=== PATIENT | female | born 1975 | race Caucasian/White ===

== ENCOUNTER 2022-10-06 16:18 | Emergency (ER) | payer MEDICAID, SELFPAY ==
[2022-10-06 16:24] VITALS: BP 125/79; PULSE 83; TEMP 36.6; O2SAT 96; BMI 32.1
[2022-10-06 16:35] VITALS: BP 128/78; PULSE 70; RESP 18; TEMP 36.6
--- NOTE | 2022-10-06 16:45 | CT_ITS ---
STUDY: CT ABDOMEN AND PELVIS WITHOUT CONTRAST REASON FOR EXAM: Female, 47 years old. Pain RADIATION DOSAGE (If Supplied By Facility): CTDIvol = ( 12.84 ) mGy, DLP = ( 737.77 ) mGycm TECHNIQUE: Transaxial images were obtained from the dome of the diaphragm to the symphysis pubis without oral contrast, and without intravenous contrast. Sagittal and coronal images were reconstructed. Individualized dose optimization techniques were used for this CT. COMPARISON: None. FINDINGS: The visualized lung bases are unremarkable. The visualized portions of the heart are within normal limits. Normal liver. There are surgical clips in the gallbladder fossa consistent with a prior cholecystectomy. Normal spleen. Normal pancreas. Normal bilateral adrenal glands. Normal right kidney. Normal left kidney. Normal visualized stomach. Normal small intestine. There are multiple colonic diverticula consistent with diverticulosis. The appendix is visualized and appears normal. Normal abdominal aorta. Normal inferior vena cava. Normal retroperitoneum. Normal urinary bladder. Normal abdominal wall. Mild dextroscoliosis of the lumbar spine with degenerative disc disease. CT/Abdomen/Pelvis without Cont IMPRESSION: No renal or ureteral stone. Electronically Signed: Olu Foote MD at 18:15 EDT ,
--- NOTE | 2022-10-06 16:47 | ED.VIS.GI ---
HPI HPI - GI History of Present Illness Chief Complaint: Complaint Detail of Chief Complaint: Right flank and hip pain. Informant: patient and family Abdominal Pain/Flank Pain Onset: Weeks Context: Gradual Onset Timing: Continuous Quality: Aching Location: Right Flank Current Severity: Moderate Maximum Severity: Moderate Worsened by: Movement Relieved by: Nothing Nausea/Vomiting/Emesis GI Symptom: Positive for Nausea Onset: Days Severity: Mild Diarrhea/Melena/Hematochezia GI Symptom: Negative for Diarrhea or Melena Associated Symptoms Associated Symptoms: Positive for Frequency and Urgency; Negative for Dysuria or Hematuria Narrative Narrative: 47-year-old female history of osteoarthritis and bipolar. Prior partial hysterectomy and cholecystectomy. She is just moved from [place] to [place] they have been on the road the last several weeks. She has had right flank and hip pain. Urinary urgency and frequency. No dysuria. No fever. No gross hematuria. No history of kidney stones. She has had urinary tract infections in the past. No fall or trauma to her hip. She has a history of both scoliosis and osteoarthritis. Prior similar symptoms: No Recent Illness/Hospitalization: No PFSH PFSH Home Medications naproxen 500 mg tablet 500 mg PO BID PRN #20 tabs 10/06/22 [Rx Last Taken Unknown] Allergy/AdvReac Type Severity Reaction Status Date / Time Penicillins Allergy Intermediate Hives Verified 10/06/22 16:23 amoxicillin Allergy Mild Hives Verified 10/06/22 16:23 codeine Allergy Hives Verified 10/06/22 16:23 erythromycin base Allergy Hives Verified 10/06/22 16:23 morphine Allergy Hives Verified 10/06/22 16:23 Sulfa (Sulfonamide Allergy Hives Verified 10/06/22 16:23 Antibiotics) Social History Smoking Status: Never smoker ROS ROS ED ROS Narrative Urinary frequency and urgency. Right flank pain. Review of Systems ROS Unobtainable: Denies due to encephalopathy Constitutional Constitutional ED: Denies chills or fever(s) ENT ENT ED: Denies ear pain Cardiovascular Cardiovascular: Denies chest pain Respiratory/Chest Respiratory/Chest: Denies cough or dyspnea Gastrointestinal Gastrointestinal: Reports abdominal pain and nausea Genitourinary Genitourinary ED: Reports urinary frequency; Denies dysuria or hematuria Musculoskeletal Musculoskeletal: Denies arthralgias Integumentary Denies abscess Neurologic Neurologic: Denies headache(s) Psychiatric Psychiatric: Denies anxiety Endocrine Endocrinology: Denies polydipsia Hematologic/Lymphatic Hematologic/Lymphatic: Denies easy bleeding Allergic/Immunologic Allergic/Immunologic ED: Denies mouth swelling EXAM Physical Exam Narrative Exam Narrative: Well-appearing 47-year-old female. Accompanied by her aunt. Vital signs are stable afebrile. She is in no distress. HEENT exam unremarkable. Lungs are clear. Heart regular rhythm. Abdomen soft nondistended normal bowel sounds no peritoneal signs. No McBurney's point tenderness. No hernia or mass. Back nontender. Moving all 4 extremities. Discomfort with range of motion to her right hip. No shortening or rotation. No redness or warmth. Neurologically she is awake and alert. Standing at bedside. Const Vital Signs: 10/06/22 16:24 10/06/22 16:35 Temperature 97.8 F 98 F Temperature Source Temporal Oral Pulse Rate 83 70 Respiratory Rate 18 Blood Pressure 125/79 H 128/78 H Blood Pressure Mean 94 94 Pulse Ox 96 Oxygen Delivery Method Room Air Positive well nourished and well developed; Negative for cachectic, contractures or unkempt General Appearance ED: well developed and NAD; Negative for unkempt, cachectic, contractures or pallor Nutritional Appearance: Negative for cachectic HEENT Reports moist mucous membranes normocephalic and atraumatic; Negative for trauma or tenderness Eyes EOMs intact bilaterally General Eye ED: Negative for pale conjunctiva or scleral icterus Neck no lymphadenopathy, supple and no JVD General: Negative for tenderness Carotids: Negative for other Lymph Lymphatic: Negative for other Resp normal respiratory effort and clear to auscultation bilaterally Effort and Inspection: Negative for respiratory distress Auscultation: Negative for rales, rhonchi or wheezes Cardio regular rate, regular rhythm, S1 normal heart sound, S2 normal heart sound and no murmurs Rhythm: Negative for abnormal rhythm GI non-tender, non-distended and no masses Inspection: Negative for abdominal distention Auscultation: normoactive bowel sounds Palpation: soft; Negative for tender or guarding Back/Spine no CVA tenderness General Back: Negative for CVA tenderness Cervical Spine: Negative for cervical spine tenderness Thoracic Spine / Upper Back: Negative for thoracic spinal tenderness Lumbar Spine / Lower Back: Negative for lumbar spinal tenderness Coccyx: Negative for other Extremity Negative for full ROM Extremity Narrative: Pain with range of motion of the right hip. General Extremety ED: Negative for edema or tenderness General Extremity: Negative for edema Neuro CN's II-XII intact bilaterally, moves all extremities and no sensory deficits noted Sensorium / Orientation: alert, oriented to person, oriented to place and oriented to time; Negative for orientation impaired Motor Exam: strength 5/5 throughout Psych mental status grossly normal and thought process normal Appearance: Negative for unkempt or other Attitude: No agitated Mood & Affect: Negative for depressed, anxious or tearful Skin no wounds General Skin Exam: Negative for jaundice or pallor Lesions: no lesions Rashes: no rashes Trauma: Negative for abrasion Nails: Negative for discolored MDM MDM MDM Narrative Medical decision making narrative: 47-year-old female with weeks of right flank pain urinary frequency and urgency. And right hip pain. No fall or trauma. No history of stones. Differential would include urinary tract infection. Kidney stone. Right hip arthritis. Versus other etiologies. CAT scan and labs are pending. She will be given IV Toradol for pain. She has multiple allergies. Repeat exam patient doing well at 5:40 PM. She has gotten some relief of her discomfort with the IV Toradol. We went over her lab results and plain x-ray. Basically that is all unremarkable. We are awaiting her CAT scan results. Repeat exam patient is doing well at 7 PM. I went over all of her test with her. Her x-rays and CAT scans were unremarkable. She will be discharged home with outpatient follow-up. I do not have a specific cause for her pain. Patient's abdomen is completely benign. They asked me to write her prescription for naproxen which was sent to the hospital pharmacy and she will be discharged to home. Outpatient follow-up. History & Record Review Discussion w/independent historian: Patient and Family Lab Data Attestation: I reviewed the patient's lab results. Lab results narrative: CBC shows a white count of 6. H&H of 13 and 38. Platelets 271. Urinalysis normal. No white or red cells. No bacteria. No nitrites. Chemistries show a sodium 134. Gap of 4. Normal BUN and creatinine 0.6. Glucose 95. Lab work and urinalysis unremarkable. Labs: Laboratory Results - last 24 hr 10/06/22 10/06/22 16:50 17:02 WBC 6.6 RBC 4.20 Hgb 13.2 Hct 38.0 MCV 90.5 MCH 31.4 MCHC 34.7 RDW Std Deviation 38.7 RDW Coeff of Mirella 11.9 Plt Count 271 MPV 8.4 Immature Gran % (Auto) 0.300 Neut % (Auto) 56.3 Lymph % (Auto) 31.7 [place] % (Auto) 7.9 Eos % (Auto) 2.7 Baso % (Auto) 1.1 H Absolute Neuts (auto) 3.7 Absolute Lymphs (auto) 2.08 Nucleated RBC % 0 Sodium 134 L Potassium 4.1 Chloride 101 Carbon Dioxide 29.0 Anion Gap 4 L BUN 9 Creatinine 0.63 Estim Creat Clear Calc 112.89 Est GFR (MDRD) Af Amer 128 Est GFR (MDRD) Non-Af 106 BUN/Creatinine Ratio 14.2 Glucose 95 Calcium 8.8 Urine Color Yellow Urine Clarity Sl. Cloudy Urine pH 7.0 Ur Specific [place] 1.005 Urine Protein Negative Urine Glucose (UA) Normal Urine Ketones Negative Urine Occult Blood Negative Urine Nitrite Negative Urine Bilirubin Negative Urine Urobilinogen Normal Ur Leukocyte Esterase Negative Urine RBC 0 SEEN Urine WBC 0 SEEN Ur Squamous Epith Cells 0-5 SEEN Amorphous Sediment 1+ PHOS Urine Bacteria 0 SEEN Urine Mucus 0 SEEN Radiography Diagnostic Testing: Clinical Impression(s) from Imaging Studies Abdomen/Pelvis CT 10/06/22 16:45 IMPRESSION: No renal or ureteral stone. Electronically Signed: Olu Foote MD at 18:15 EDT Reading Location ID and State: [id number] / [place] [address] , Service support , Hip/Pelvis X-Ray 10/06/22 17:22 IMPRESSION: Normal x-ray examination of the pelvis and hip. Electronically Signed: Olu Foote MD at 17:34 EDT , Right hip and pelvis x-rays x3 views, interpreted by myself shows no acute abnormality. No fracture nor dislocation nor any significant arthritic changes. Also read by the radiologist and agrees. Discharge Plan Triage Chief Complaint: Complaint ED Provider: Sabas Casanova Dx/Rx/DC Orders Clinical Impression: Abdominal pain Instructions: Abdominal Pain Prescriptions: New naproxen 500 mg tablet 500 mg PO BID PRN Qty: 20 0RF Primary Care Provider: Care Physician,No Primary Referrals: Rashi Muhammad MD [Med Staff - Irrigation Installation Specialist] - 1 Week Care Physician,No Primary [Primary Care Provider] - Activity Restrictions/Additional Instructions: Your labs CAT scan and x-rays were unremarkable. Follow-up with a local primary care physician. Disposition Disposition: Home, Self Care
[2022-10-06 16:56] LABS: Bacteria 0 SEEN /hpf (None Seen); Mucous, Urine 0 SEEN /hpf (<or=2+); Red Blood Cells-Urine 0 SEEN /hpf (0-5); White Blood Cells 0 SEEN /hpf (0-5)
[2022-10-06 16:59] LABS: Color, Urine Yellow (Yellow); Glucose, Dipstick Normal (Normal); Ketone-Dipstick Negative (Negative); Leukocyte Esterase-Dipstick Negative /ul (Negative); Nitrite-Dipstick Negative (Negative); Occult Blood-Urine Negative /ul (Negative); Protein-Dipstick Negative (Negative); Specific Gravity, Urine 1.005 (1.002-1.030); Urine Bilirubin Dipstick Negative (Negative); Urine Clarity Sl. Cloudy (Clear); Urine Urobilinogen Normal (Normal)
[2022-10-06] MEDS: Ketorolac 30 MG/ML Syringe IV (17:02)
[2022-10-06 17:11] LABS: Amorphous Sediment 1+ PHOS; Squamous Epithelial Cells - UA 0-5 SEEN /hpf (5-10)
[2022-10-06 17:11] LABS: Absolute Lymphocyte Count 2.08 X10^3/uL (0.83-4.51); Absolute Neutrophil Count 3.7 X10^3/uL (2.0-7.7); Basophil# 0.07 X10^3/uL; Basophil% 1.1 % (0-1); Eosinophil# 0.18 X10^3/uL; Eosinophils% 2.7 % (0-5); Hemoglobin 13.2 g/dL (12.0-15.0); Lymphocyte # 2.08 X10^3/ul (0.83-4.51); Lymphocyte % 31.7 % (19-41); Mean Corp Hgb Conc 34.7 g/dL (32-36); Mean Corpuscular Hgb 31.4 pg (27.0-32.0); Mean Corpuscular Volume 90.5 fL (81-99); Mean Platelet Vol. 8.4 fl (6.2-12.0); Monocyte# 0.52 X10^3/uL; Monocyte% 7.9 % (0-10); NRBC Flagged by Analyzer 0 % (0-5); Neutrophil % 56.3 % (47-70); Platelet Count 271 K/mm3 (150-450); RBC Distribution Width CV 11.9 % (11.6-14.6); RBC Distribution Width SD 38.7 fl (35.1-43.9); White Blood Count 6.6 K/mm3 (4.4-11.0)
[2022-10-06 17:22] LABS: Anion Gap 4 (5-15); BUN 9 mg/dL (7-18); BUN/Creat Ratio 14.2 RATIO (10-20); Calcium,Total 8.8 mg/dL (8.5-10.1); Chloride 101 mmol/L (98-107); Creatinine, Serum 0.63 mg/dL (0.55-1.02); EST Glomerular Filtration Rate 106 mL/min (>60); Est Glom Filt Rate - Afr Amer 128 mL/min (>60); Estimated Creatinine Clearance 112.89 ml/min; Glucose 95 mg/dL (74-106); Potassium 4.1 mmol/L (3.5-5.1); Sodium Level 134 mmol/L (136-145)
--- NOTE | 2022-10-06 17:22 | RAD_ITS ---
STUDY: X-RAY - PELVIS AND RIGHT HIP REASON FOR EXAM: Female, 47 years old. atraumatic right hip pain TECHNIQUE: 3 views of the pelvis and hip. COMPARISON: None. FINDINGS: There is a non-specific bowel gas pattern. Normal visualized soft tissue structures. Normal bilateral iliac wings, sacroiliac joints and visualized sacrum. Normal bilateral superior and inferior pubic rami. Normal pubic symphysis. Normal bilateral ischial tuberosities. Normal visualized femoral head. Normal acetabulum. Normal hip joint. RAD/HIP, UNI W/ Pelvis 2-3 Views IMPRESSION: Normal x-ray examination of the pelvis and hip. Electronically Signed: Olu Foote MD at 17:34 EDT ,
== END 2022-10-06 19:52 | disposition home or self-care (01) ==
PROVIDERS: Emergency Provider Emergency Medicine; Visit Provider Emergency Medicine
DX: R10.9 Unspecified abdominal pain (principal); R11.2 Nausea with vomiting, unspecified; M25.551 Pain in right hip
CPT/HCPCS: 73502; 74176; 80048; 81001; 85025; 96374; 99283; J7030; A4216